=== PATIENT | female | born 1970 ===

== ENCOUNTER 2017-11-21 13:34 | Emergency (ER) | payer OTHER ==
[~2017-11-21] VITALS: Ht 165.1 cm; Wt 70.5 kg
[~2017-11-21 13:34] MED LIST: ADVIN25050 INH; ALBUAER2 INH; ALPR1TAB3 PO; ASCO250T14; CITA10TA8 PO; CODCAP4; DLC5 PO; FRRS300 PO; LANS30CA12 PO; MULT-506 PO; SENN-65 PO
[2017-11-21 13:46] VITALS: TEMP 36.8
--- NOTE | 2017-11-21 14:03 | EMERGENCY ROOM VISIT NOTE ---
History Report prepared by Genie: Cheryl Rocha Under the Supervision of: Dr. Rogelio Fraser D.O. First contact with patient: 13:50 Chief Complaint: SHORTNESS OF BREATH Stated Complaint: DIZZY, BODY PAIN, SOB History of Present Illness The patient is a 47 year old female who presents to the Emergency Room with complaints of generalized weakness and pain. The patient states for approximately 1 month she has been noticing generalized weakness. She states that she has no focal neurologic deficits or unilateral weakness but states her whole body feels weak. She also complains of joint pain but no joint swelling. She denies having any fever. She complains of headache as well and states that this is been intermittent for approximately the last month. She states that she has not seen her family doctor for the symptoms but has had similar symptoms in the past. She has a history of chronic anemia as well as chronic pain. She takes medical marijuana for her chronic pain. She is required blood transfusion in the past because of anemia. She denies having any leg swelling but does complain of some chest pain. She states the chest pain is very intermittent and not associated with exertion. She denies having any new medications. The patient states that she noticed increasing of her symptoms over the last few days. For this reason she presented to the emergency department today. Source of History: patient Onset: 1 month Position: other (generalized) Quality: other (weakness) Timing: other (persistent) Associated Symptoms: + headache, + chest pain, No fevers Note: Pt reports joint pain. Review of Systems See HPI for pertinent positives & negatives. A total of 10 systems reviewed and were otherwise negative. Past Medical & Surgical Medical Problems: (1) Iron deficiency anemia (2) MAC (mycobacterium avium-intracellulare complex) Surgical Problems: (1) H/O gastric bypass (2) H/O: hysterectomy Family History Cancer Diabetes mellitus Social History Smoking Status: Never Smoker Alcohol Use: none Marital Status: Current/Historical Medications Scheduled Albuterol Hfa (Ventolin Hfa), 2-4 PUFFS INH Q6H Budesonide/Formoterol Fumarate (Symbicort 160-4.5 Mcg/Act), 2 PUFFS INH QAM Fluticasone Prop/Salmeterol (Advair Diskus 250/50 60 Dose), 1 PUFF INH BID Marijuana, Home Medication (Marijuana, Home Medication), 1 PUFF INH HS Montelukast Sodium (Singulair), 10 MG PO DAILY Omeprazole (Prilosec), 40 MG PO DAILY Paroxetine Hcl (Paxil), 20 MG PO DAILY Quetiapine Fumarate (Seroquel), 200 MG PO DAILY Valacyclovir Hcl (Valtrex), 500 MG PO UD Scheduled PRN Naproxen Sodium (Aleve), 220 MG PO UD PRN for Pain Allergies Coded Allergies: NO KNOWN DRUG ALLERGIES (Unverified Allergy, Unknown, no drug, 11/21/17) Shellfish (Verified Allergy, Unknown, UNKNOWN, 11/21/17) [place] (Verified Allergy, Unknown, UNKNOWN, 11/21/17) Physical Exam Vital Signs Date Time Temp Pulse Resp B/P (MAP) Pulse Ox O2 Delivery O2 Flow Rate FiO2 11/21/17 15:20 71 17 101/68 97 11/21/17 14:11 95 Room Air 11/21/17 14:11 95 Room Air 11/21/17 13:46 36.8 107 20 128/77 95 Room Air Physical Exam GENERAL: Patient is awake alert in no acute distress patient is resting comfortably and showing no signs of anxiety EYES: The conjunctivae are clear. The pupils are round and reactive. EARS, NOSE, MOUTH AND THROAT: The nose is without any evidence of any deformity. Mucous membranes are moist tongue is midline NECK: The neck is nontender and supple. RESPIRATORY: Normal respiratory effort is noted there is no evidence of wheezing rhonchi or rales CARDIOVASCULAR: Regular rate and rhythm noted there no murmurs rubs or gallops normal S1 normal S2 GASTROINTESTINAL: The abdomen is soft. Bowel sounds are present in all quadrants. Abdomen is nontender MUSCULOSKELETAL/EXTREMITIES: There is no evidence of gross deformity full range of motion is noted in the hips and shoulders SKIN: There is no obvious evidence of any rash. There are no petechiae, pallor or cyanosis noted. NEUROLOGIC: Patient is awake alert and oriented x3 strength is symmetric patellar reflexes are 2+ bilaterally Medical Decision & Procedures ER Provider Diagnostic Interpretation: X-ray results as stated below per interpretation by me and the radiologist. CHEST ONE VIEW PORTABLE HISTORY: EVALUATE ALTERED MENTAL STATUS/WEAKNESS COMPARISON: Chest 05/19/2014. FINDINGS: Stable small nodular densities within the right upper lobe. No new focal lung consolidations. The heart is normal in size. No pleural effusions. No pneumothorax. Small left-sided fat-containing Bochdalek hernia remains stable. IMPRESSION: No significant change compared to the prior study. No acute process. Follow-up nonemergent chest CT is recommended to confirm stability of the right upper lobe nodular densities. Electronically signed by: Greg Rivera M.D. 11/21/2017 2:29 PM Dictated Date/Time: 11/21/2017 2:26 PM Laboratory Results 11/21/17 14:20 Red Blood Count 4.23, Mean Corpuscular Volume 82.0, Mean Corpuscular Hemoglobin 26.7, Mean Corpuscular Hemoglobin Concent 32.6, Mean Platelet Volume 9.9, Neutrophils (%) (Auto) 69.2, Lymphocytes (%) (Auto) 20.8, Monocytes (%) (Auto) 6.4, Eosinophils (%) (Auto) 3.2, Basophils (%) (Auto) 0.3, Neutrophils # (Auto) 4.78, Lymphocytes # (Auto) 1.44, Monocytes # (Auto) 0.44, Eosinophils # (Auto) 0.22, Basophils # (Auto) 0.02 11/21/17 14:20 Test 11/21/17 00:00 11/21/17 14:20 Urine Color YELLOW Urine Appearance CLEAR (CLEAR) Urine pH 6.5 (4.5-7.5) Urine Specific [place] 1.012 (1.000-1.030) Urine Protein NEG (NEG) Urine Glucose (UA) NEG (NEG) Urine Ketones NEG (NEG) Urine Occult Blood NEG (NEG) Urine Nitrite NEG (NEG) Urine Bilirubin NEG (NEG) Urine Urobilinogen NEG (NEG) Urine Leukocyte Esterase NEG (NEG) White Blood Count 6.91 K/uL (4.8-10.8) Red Blood Count 4.23 M/uL (4.2-5.4) Hemoglobin 11.3 g/dL (12.0-16.0) Hematocrit 34.7 % (37-47) Mean Corpuscular Volume 82.0 fL (80-100) Mean Corpuscular Hemoglobin 26.7 pg (25-34) Mean Corpuscular Hemoglobin Concent 32.6 g/dl (32-36) Platelet Count 322 K/uL (130-400) Mean Platelet Volume 9.9 fL (7.4-10.4) Neutrophils (%) (Auto) 69.2 % Lymphocytes (%) (Auto) 20.8 % Monocytes (%) (Auto) 6.4 % Eosinophils (%) (Auto) 3.2 % Basophils (%) (Auto) 0.3 % Neutrophils # (Auto) 4.78 K/uL (1.4-6.5) Lymphocytes # (Auto) 1.44 K/uL (1.2-3.4) Monocytes # (Auto) 0.44 K/uL (0.11-0.59) Eosinophils # (Auto) 0.22 K/uL (0-0.5) Basophils # (Auto) 0.02 K/uL (0-0.2) RDW Standard Deviation 51.5 fL (36.4-46.3) RDW Coefficient of Variation 17.1 % (11.5-14.5) Immature Granulocyte % (Auto) 0.1 % Immature Granulocyte # (Auto) 0.01 K/uL (0.00-0.02) Prothrombin Time 9.5 SECONDS (9.0-12.0) Prothromb Time International Ratio 0.9 (0.9-1.1) Activated Partial Thromboplast Time 24.3 SECONDS (21.0-31.0) Partial Thromboplastin Ratio 0.9 Anion Gap 6.0 mmol/L (3-11) Est Creatinine Clear Calc Drug Dose 104.7 ml/min Estimated GFR () 121.4 Estimated GFR (Non- 104.8 BUN/Creatinine Ratio 23.5 (10-20) Calcium Level 8.5 mg/dl (8.5-10.1) Magnesium Level 2.0 mg/dl (1.8-2.4) Total Bilirubin 0.6 mg/dl (0.2-1) Direct Bilirubin 0.1 mg/dl (0-0.2) Aspartate Amino Transf (AST/SGOT) 29 U/L (15-37) Alanine Aminotransferase (ALT/SGPT) 28 U/L (12-78) Alkaline Phosphatase 174 U/L (45-117) Troponin I < 0.015 ng/ml (0-0.045) Total Protein 7.4 gm/dl (6.4-8.2) Albumin 3.6 gm/dl (3.4-5.0) Thyroid Stimulating Hormone (TSH) 1.110 uIu/ml (0.300-4.500) Laboratory results per my review. ECG Per My Interpretation Indication: SOB/dyspnea Rate (beats per minute): 72 Rhythm: normal sinus Findings: no ectopy, other (no acute ST segments) Comparison ECG Date: 27-Jul-2010 Change: no significant change ED Course 1353: The patient was evaluated in room A11B. A complete history and physical examination were performed. 1511: Upon reevaluation, the patient is resting comfortably. I discussed the results and treatment plan with her. She verbalized agreement of the treatment plan. She was discharged home. Medical Decision Prior records/ancillary studies reviewed and summarized above. Nursing notes reviewed. Differential diagnosis: Etiologies such as metabolic, infection, hypo/hyperglycemia, electrolyte abnormalities, cardiac sources, intracerebral event, toxicologic, neurologic, as well as others were entertained. The patient is a 47-year-old female who presented to the emergency department with multiple complaints. The patient was complaining of muscle aches joint pain generalized weakness and headache. The patient had no focal neurologic deficits. She had a history of anemia and states that she had similar symptoms in the past with anemia. She is also required transfusion because of her anemia. The patient did not have any fever. Her white blood cell count was normal. Her hemoglobin was in the anemia range however it was better than it had been previously. I discussed the patient's laboratory and radiographic studies with her. She was encouraged to rest and avoid any strenuous activity. She was also encouraged to continue all medications as prescribed and call her family doctor to schedule a follow-up appointment. Otherwise she was encouraged to return to the emergency department immediately if symptoms change worsen or the need arises. Medication Reconcilliation Current Medication List: was personally reviewed by me Blood Pressure Screening Patient's blood pressure: Elevated blood pressure Blood pressure disposition: Elevated BP felt to be situational Impression Primary Impression: Weakness Additional Impression: Anemia Scribe Attestation The scribe's documentation has been prepared under my direction and personally reviewed by me in its entirety. I confirm that the note above accurately reflects all work, treatment, procedures, and medical decision making performed by me. Departure Information Dispostion Home / Self-Care Referrals Flash Aquino M.D. (PCP) Forms HOME CARE DOCUMENTATION FORM, IMPORTANT VISIT INFORMATION Patient Instructions ED Weakness [facility], My [facility] Additional Instructions Continue all medications as prescribed. Rest and avoid any strenuous activity. Call your family doctor to schedule a follow-up appointment. Problem Qualifiers Additional Impression: Anemia Anemia type: unspecified type Qualified Codes: D64.9 - Anemia, unspecified
[2017-11-21 14:11] VITALS: O2SAT 95; Ht 165.1 cm; Wt 70.5 kg
[2017-11-21 14:26] LABS: BASO % 0.3 %; BASO ABS # 0.02 K/uL (0-0.2); EOS % 3.2 %; EOS ABS # 0.22 K/uL (0-0.5); HEMATOCRIT 34.7 % (37-47); HEMOGLOBIN 11.3 g/dL (12.0-16.0); IG# 0.01 K/uL (0.00-0.02); LYMPH % 20.8 %; LYMPH ABS # 1.44 K/uL (1.2-3.4); MEAN CORPUSCULAR HEMOGLOBIN 26.7 pg (25-34); MEAN CORPUSCULAR HGB CONC 32.6 g/dl (32-36); MEAN PLATELET VOLUME 9.9 fL (7.4-10.4); MONO % 6.4 %; MONO ABS # 0.44 K/uL (0.11-0.59); NEUT % 69.2 %; NEUT ABS # 4.78 K/uL (1.4-6.5); PLATELET COUNT 322 K/uL (130-400); RED CELL DISTRIBUTION WIDTH CV 17.1 % (11.5-14.5); RED CELL DISTRIBUTION WIDTH SD 51.5 fL (36.4-46.3); WHITE BLOOD COUNT 6.91 K/uL (4.8-10.8)
--- NOTE | 2017-11-21 14:30 | DIAGNOSTIC IMAGING REPORT ---
CHEST ONE VIEW PORTABLE HISTORY: EVALUATE ALTERED MENTAL STATUS/WEAKNESS COMPARISON: Chest 05/19/2014. FINDINGS: Stable small nodular densities within the right upper lobe. No new focal lung consolidations. The heart is normal in size. No pleural effusions. No pneumothorax. Small left-sided fat-containing Bochdalek hernia remains stable. IMPRESSION: No significant change compared to the prior study. No acute process. Follow-up nonemergent chest CT is recommended to confirm stability of the right upper lobe nodular densities. Electronically signed by: Greg Rivera M.D. 11/21/2017 2:29 PM Dictated Date/Time: 11/21/2017 2:26 PM
[2017-11-21] MEDS ORDERED: SYMIN INH (14:31)
[2017-11-21] MEDS ORDERED: MEDMARIJ INH (14:31)
[2017-11-21] MEDS ORDERED: VNTHFA/IN INH (14:31)
[2017-11-21] MEDS ORDERED: VALA500T39 PO (14:31)
[2017-11-21] MEDS ORDERED: ADVIN25/60 INH (14:31)
[2017-11-21] MEDS ORDERED: SRQ/200 PO (14:31)
[2017-11-21] MEDS ORDERED: OMEP40CA41 PO (14:31)
[2017-11-21] MEDS ORDERED: PARO20TA PO (14:31)
[2017-11-21] MEDS ORDERED: MONT1TAB3 PO (14:31)
[2017-11-21] MEDS ORDERED: NAPR-1264 PO (14:32)
[2017-11-21 14:56] LABS: INR 0.9 (0.9-1.1); PTT PATIENT 24.3 SECONDS (21.0-31.0)
[2017-11-21 15:02] LABS: ALBUMIN 3.6 gm/dl (3.4-5.0); ALKALINE PHOSPHATASE 174 U/L (45-117); ALT/SGPT 28 U/L (12-78); AST/SGOT 29 U/L (15-37); BLOOD UREA NITROGEN 15 mg/dl (7-18); CALCIUM 8.5 mg/dl (8.5-10.1); CARBON DIOXIDE 25 mmol/L (21-32); CREATININE 0.64 mg/dl (0.60-1.20); GLUCOSE 101 mg/dl (70-99); POTASSIUM 3.6 mmol/L (3.5-5.1); SODIUM 139 mmol/L (136-145); TOTAL PROTEIN 7.4 gm/dl (6.4-8.2)
[2017-11-21 15:20] VITALS: BP 101/68; PULSE 71; O2SAT 97
== END 2017-11-21 15:20 | disposition home or self-care (01) ==
LOC: C.EDB 13:35 → C.EDA 15:20
DX: R53.1 Weakness (principal); D64.9 Anemia, unspecified; Z79.899 Other long term (current) drug therapy; F12.90 Cannabis use, unspecified, uncomplicated; Z91.018 Allergy to other foods

== ENCOUNTER 2018-02-18 11:27 | Emergency (ER) | payer OTHER ==
[~2018-02-18] VITALS: Ht 165.1 cm; Wt 72.4 kg
[~2018-02-18 11:27] MED LIST changes: +ADVIN25/60 INH; -ADVIN25050 INH; -ALBUAER2 INH; -ALPR1TAB3 PO; -ASCO250T14; -CITA10TA8 PO; -CODCAP4; -DLC5 PO; -FRRS300 PO; -LANS30CA12 PO; +MEDMARIJ INH; +MONT1TAB3 PO; -MULT-506 PO; +NAPR-1264 PO; +OMEP40CA41 PO; +PARO20TA PO; -SENN-65 PO; +SRQ/200 PO; +SYMIN INH; +VALA500T41 PO; +VNTHFA/IN INH
[2018-02-18 11:33] VITALS: TEMP 37.4
[2018-02-18] MEDS ORDERED: ALBUT/IPRATROP 3MG/0.5MG NEB 3 ML VIAL INH STA (12:21)
[2018-02-18] MEDS ORDERED: ACETAMINOPHEN 500 MG TAB PO STA (12:21)
[2018-02-18] MEDS ORDERED: KETOROLAC TROMETHAMINE 30 MG/ML VIAL IV STA (12:21)
[2018-02-18 12:29] VITALS: Ht 165.1 cm; Wt 72.4 kg
[2018-02-18] MEDS ORDERED: NAPR-1007 PO (12:37)
[2018-02-18] MEDS ORDERED: CLOT-32 PV (12:37)
[2018-02-18] MEDS ORDERED: LEVO5TAB7 PO (12:37)
[2018-02-18] MEDS ORDERED: ERGO2000 PO (12:37)
[2018-02-18] MEDS ORDERED: VNTHFA/IN INH (12:37)
[2018-02-18] MEDS ORDERED: MULT-506 PO (12:37)
[2018-02-18] MEDS ORDERED: PRLSR20 PO (12:37)
[2018-02-18] MEDS ORDERED: CLOB1OIN2 TOP (12:37)
[2018-02-18] MEDS ORDERED: CYCL10TA6 PO (12:37)
[2018-02-18] MEDS ORDERED: IPRA-64 INH (12:37)
[2018-02-18 12:38] LABS: BASO % 0.3 %; BASO ABS # 0.03 K/uL (0-0.2); EOS % 5.6 %; EOS ABS # 0.51 K/uL (0-0.5); HEMATOCRIT 31.2 % (37-47); HEMOGLOBIN 9.9 g/dL (12.0-16.0); IG# 0.01 K/uL (0.00-0.02); LYMPH % 9.9 %; MEAN CELL VOLUME 83.6 fL (80-100); MEAN CORPUSCULAR HEMOGLOBIN 26.5 pg (25-34); MEAN CORPUSCULAR HGB CONC 31.7 g/dl (32-36); MEAN PLATELET VOLUME 9.9 fL (7.4-10.4); MONO % 7.2 %; MONO ABS # 0.66 K/uL (0.11-0.59); NEUT % 76.9 %; PLATELET COUNT 282 K/uL (130-400); RED CELL DISTRIBUTION WIDTH CV 16.7 % (11.5-14.5); RED CELL DISTRIBUTION WIDTH SD 50.9 fL (36.4-46.3); WHITE BLOOD COUNT 9.11 K/uL (4.8-10.8)
[2018-02-18 12:47] VITALS: O2SAT 96
[2018-02-18 12:49] LABS: ALBUMIN 3.4 gm/dl (3.4-5.0); CALCIUM 8.3 mg/dl (8.5-10.1); CREATININE 0.62 mg/dl (0.60-1.20); POTASSIUM 3.3 mmol/L (3.5-5.1); TOTAL PROTEIN 6.9 gm/dl (6.4-8.2)
--- NOTE | 2018-02-18 12:50 | EMERGENCY ROOM VISIT NOTE ---
ED Visit Note First contact with patient: 11:58 CHIEF COMPLAINT: Cough, congestion, chest tightness, asthma HISTORY OF PRESENTING ILLNESS: This is a 47-year-old female with past medical history significant for asthma, iron deficiency anemia, anxiety and depression, who presents to the emergency department by private vehicle with complaint of cough, congestion, and chest tightness for the past 3 days. The patient states that she was working outside in the rain prior to her symptoms starting, she began with URI type symptoms of cough, congestion, and sore throat. She states that she feels that this has flared up her asthma. She states that she has been using her rescue inhaler with some improvement, but today she felt worse, and was having tightness in her chest and feeling like her asthma and cough for worse, which prompted her to come to the emergency department. She also complains of generalized body aches, and feels that she is dehydrated. She does note that she ran out of her Symbicort inhaler a few weeks ago and has not been able to get this refilled. She denies any recent courses of steroids. She denies any fevers, but states she has been having chills and sweats. She denies any headaches, neck pain or stiffness, back pain, abdominal pain, nausea or vomiting, diarrhea, urinary symptoms, or unusual rash. REVIEW OF SYSTEMS: A complete 10 point review of systems was reviewed with the patient with pertinent positives and negatives as per history of present illness. All else were negative. PAST MEDICAL HISTORY: Reviewed in chart, see problem list below. SOCIAL HISTORY: Lives at home. She is a former smoker. She does admit to smoking marijuana occasionally. ALLERGIES: Reviewed in chart, see below. PHYSICAL EXAM: CONSTITUTIONAL: Pleasant and cooperative. No acute distress. Mildly dehydrated , but otherwise well appearing and well nourished. HEENT: Normocephalic, atraumatic. Pupils equal, round and reactive to light, EOMI. TMs normal. Pharynx normal. Tacky mucous membranes. NECK: Supple, full active range of motion without discomfort. No cervical adenopathy. RESPIRATORY: Diminished in bases bilaterally with scant expiratory wheezes heard on auscultation, no crackles, rhonchi or stridor. Equal expansion bilaterally. CARDIOVASCULAR: Regular rate and rhythm with no murmurs, rubs or gallops. Normal peripheral perfusion. No edema. GASTROINTESTINAL: Soft, nontender, nondistended. No palpable masses or HSM. Bowel sounds present in all quadrants. MUSCULOSKELETAL: Full range of motion of all joints without discomfort. INTEGUMENTARY: No rash or other significant dermatologic conditions noted. NEUROLOGIC: Alert and oriented X 4 with normal affect. Normal strength and sensation in all 4 extremities. No focal neurologic deficits noted. Normal speech. Normal gait observed. ED COURSE AND MEDICAL DECISION MAKING: CC: Patient presenting with complaint of cough, congestion, chest tightness, asthma DIFFERENTIAL DIAGNOSIS: Includes, but not limited to asthma exacerbation, URI, bronchitis, pneumonia, PE, among others. INTERPRETATION OF LABS: No leukocytosis, anemia which appears consistent with baseline, normal platelets, no significant electrolyte abnormalities, normal renal function, normal liver enzymes. IMAGING: CHEST 2 VIEWS ROUTINE CLINICAL HISTORY: EVALUATE RESPIRATORY DISTRESS.DYSPNEA COMPARISON STUDY: Chest radiograph November 21, 2017. FINDINGS: Upper abdominal surgical clips are noted. There is no pneumothorax or pleural effusion. There is no evidence for pulmonary edema. Cardiac size is normal. Mediastinal contours are normal. A small nodular density within the right midlung is unchanged. This favors scarring. A 1.5 cm right upper lung nodular density is indeterminate. IMPRESSION: 1. No acute cardiopulmonary findings. 2. 1.5 cm nodular right upper lung density which may reflect scarring or a pulmonary nodule. A nonemergent chest CT is recommended for further evaluation. 3. Nodular right midlung density which favors scarring. EKG: Shows normal sinus rhythm with a rate of 69 bpm, no acute ST or T-wave changes, no ectopy, no significant change when compared to previous EKG from by my interpretation. MEDICATION RECONCILIATION: I attest that I have personally reviewed the patient 's current medication list. INITIAL VITAL SIGNS REVIEW: I reviewed the patient's initial vital signs and interpret them as follows: T: Afebrile; BP: Hypertensive; HR: Mildly tachycardic; RR: Within normal limits; Pulse Ox: Within normal limits on room air. Blood pressure screening: The patient was found to have an elevated blood pressure, which was felt to be situational. SUMMARY: Patient was evaluated at bedside, history and physical exam performed. Patient is alert and oriented, in no acute distress, resting calmly in stretcher. No evidence of respiratory distress, she is not tachypneic or labored, airway patent. Lungs are diminished with scant expiratory wheezes heard on auscultation. She is PERC negative, I have a low suspicion for PE at this time. Her symptoms seem most consistent with a viral type URI and asthma exacerbation. Orders were placed at bedside for labs, UA, IV fluids for hydration, IV Toradol and p.o. Tylenol for body aches and throat pain, DuoNeb, chest x-ray to evaluate for cardiopulmonary disease. Patient discussed with Dr. Lynch, who agrees with my assessment and plan. Labs and imaging reviewed as above, no evidence for pneumonia on chest x-ray. Patient was encouraged to follow-up with her PCP regarding lung nodules. Patient reassessed multiple times throughout ED stay, she has remained stable, reports that her symptoms feel much improved after the DuoNeb and medications. Patient was updated on all results and plan for discharge, she was encouraged to follow closely with her PCP. Patient was also given strict return precautions should her symptoms worsen, she verbalized understanding. Patient was discharged home in stable condition and ambulatory. Problem List Medical Problems: (1) Iron deficiency anemia Status: Chronic (2) MAC (mycobacterium avium-intracellulare complex) Status: Chronic Surgical Problems: (1) H/O gastric bypass Status: Resolved (2) H/O: hysterectomy Status: Resolved Current/Historical Medications Scheduled Budesonide/Formoterol Fumarate (Symbicort 160-4.5 Mcg/Act), 2 PUFFS INH BID Clobetasol Propionate (Temovate), 1 APPLN TOP BID Clotrimazole Vaginal (Ra Clotrimazole 7), 1 APPL PV HS Ergocalciferol (Vitamin D), 2,000 UNITS PO DAILY Fluticasone Prop/Salmeterol (Advair Diskus 250/50 60 Dose), 1 PUFF INH BID Levocetirizine Dihydrochloride (Xyzal Allergy 24Hr), 5 MG PO QPM Marijuana, Home Medication (Marijuana, Home Medication), 1 PUFF INH HS Montelukast Sodium (Singulair), 10 MG PO HS Multivitamin (Multivitamin), 1 TAB PO DAILY Omeprazole (Prilosec), 20 MG PO HS Paroxetine Hcl (Paxil), 20 MG PO DAILY Quetiapine Fumarate (Seroquel), 200 MG PO HS Valacyclovir Hcl (Valtrex), 500 MG PO UD Scheduled PRN Albuterol Hfa (Ventolin Hfa), 2 PUFFS INH Q4 PRN for COUGH/WHEEZING Cyclobenzaprine Hcl (Flexeril), 10 MG PO HS PRN for Muscle Spasms Ipratropium-Albuterol (Duoneb), 1 TREATMENT INH Q6 PRN for SOB/Wheezing Naproxen Sodium (Naproxen Sodium), 500 MG PO BIDM PRN for Pain Allergies Coded Allergies: Shellfish (Verified Allergy, Unknown, UNKNOWN, 02/18/18) [place] (Verified Allergy, Unknown, UNKNOWN, 02/18/18) Vital Signs Date Time Temp Pulse Resp B/P (MAP) Pulse Ox O2 Delivery O2 Flow Rate FiO2 02/18/18 16:13 61 16 115/74 97 02/18/18 14:21 72 120/79 97 Room Air 02/18/18 13:30 71 20 115/72 97 Room Air 02/18/18 12:57 73 02/18/18 12:47 96 Room Air 02/18/18 12:36 96 Room Air 02/18/18 11:33 37.4 92 17 146/77 96 Room Air Laboratory Results 02/18/18 12:10 Red Blood Count 3.73, Mean Corpuscular Volume 83.6, Mean Corpuscular Hemoglobin 26.5, Mean Corpuscular Hemoglobin Concent 31.7, Mean Platelet Volume 9.9, Neutrophils (%) (Auto) 76.9, Lymphocytes (%) (Auto) 9.9, Monocytes (%) (Auto) 7.2, Eosinophils (%) (Auto) 5.6, Basophils (%) (Auto) 0.3, Neutrophils # (Auto) 7.00, Lymphocytes # (Auto) 0.90, Monocytes # (Auto) 0.66, Eosinophils # (Auto) 0.51, Basophils # (Auto) 0.03 02/18/18 12:10 Test 02/18/18 12:10 White Blood Count 9.11 K/uL (4.8-10.8) Red Blood Count 3.73 M/uL (4.2-5.4) Hemoglobin 9.9 g/dL (12.0-16.0) Hematocrit 31.2 % (37-47) Mean Corpuscular Volume 83.6 fL (80-100) Mean Corpuscular Hemoglobin 26.5 pg (25-34) Mean Corpuscular Hemoglobin Concent 31.7 g/dl (32-36) Platelet Count 282 K/uL (130-400) Mean Platelet Volume 9.9 fL (7.4-10.4) Neutrophils (%) (Auto) 76.9 % Lymphocytes (%) (Auto) 9.9 % Monocytes (%) (Auto) 7.2 % Eosinophils (%) (Auto) 5.6 % Basophils (%) (Auto) 0.3 % Neutrophils # (Auto) 7.00 K/uL (1.4-6.5) Lymphocytes # (Auto) 0.90 K/uL (1.2-3.4) Monocytes # (Auto) 0.66 K/uL (0.11-0.59) Eosinophils # (Auto) 0.51 K/uL (0-0.5) Basophils # (Auto) 0.03 K/uL (0-0.2) RDW Standard Deviation 50.9 fL (36.4-46.3) RDW Coefficient of Variation 16.7 % (11.5-14.5) Immature Granulocyte % (Auto) 0.1 % Immature Granulocyte # (Auto) 0.01 K/uL (0.00-0.02) Anion Gap 8.0 mmol/L (3-11) Est Creatinine Clear Calc Drug Dose 109.4 ml/min Estimated GFR () 122.7 Estimated GFR (Non- 105.9 BUN/Creatinine Ratio 21.6 (10-20) Calcium Level 8.3 mg/dl (8.5-10.1) Total Bilirubin 0.4 mg/dl (0.2-1) Aspartate Amino Transf (AST/SGOT) 23 U/L (15-37) Alanine Aminotransferase (ALT/SGPT) 23 U/L (12-78) Alkaline Phosphatase 142 U/L (45-117) Total Protein 6.9 gm/dl (6.4-8.2) Albumin 3.4 gm/dl (3.4-5.0) Globulin 3.5 gm/dl (2.5-4.0) Albumin/Globulin Ratio 1.0 (0.9-2) Medications Administered Medications (Trade) Dose Ordered Sig/Emily Route Start Time Stop Time Status Last Admin Dose Admin Acetaminophen (Tylenol Tab) 1,000 mg NOW STAT PO 02/18/18 12:21 02/18/18 12:24 DC 02/18/18 12:44 1,000 MG Albuterol/ Ipratropium (Duoneb) 3 ml NOW STAT INH 02/18/18 12:21 02/18/18 12:24 DC 02/18/18 12:43 3 ML Ketorolac Tromethamine (Toradol Inj) 15 mg NOW STAT IV 02/18/18 12:21 02/18/18 12:24 DC 02/18/18 12:44 15 MG Departure Information Impression Primary Impression: Acute bronchitis with asthma Dispostion Home / Self-Care Condition GOOD Referrals Flash Aquino M.D. (PCP) Patient Instructions ED Bronchitis Asthmatic, My [facility] Additional Instructions You have been evaluated in the emergency department for your cough and asthma. There is no evidence of pneumonia on your chest x-ray. You most likely have bronchitis and a flare of your asthma. Use the albuterol inhaler with the spacer tube TWO puffs every 4 hours as needed for cough, wheezing, chest tightness. You should also use this before bed to help prevent coughing so that you can sleep better at night. For chest pain, body aches or fevers, you can use the following over-the- counter medicines (if >12 yo): - Regular strength (325mg/tab) Tylenol (acetaminophen) 2 tabs every 4-6 hours as needed. Do not exceed 10 tablets in a 24 hour period. Avoid taking more than 3000 mg of Tylenol per day. This includes any other sources of acetaminophen you may take on a regular basis. - Regular strength (200 mg/tab) Advil (ibuprofen) 3 tabs every 6-8 hours as needed. Do not exceed a dose of 2400 mg per day. - For best results, alternate dosing of Tylenol and Advil every 3-4 hours. Drink plenty of fluids to stay well hydrated. 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 Please follow-up with your PCP or at an urgent care in the next few days to be rechecked if your symptoms are not getting any better. You should also have a chest CT scan in 3-6 months to evaluate your lung nodule. Please return to the emergency department if your symptoms are not improving or if you develop the following symptoms of: inability to swallow solids, liquids, or drool; excessive wheezing or inability to catch your breath; worsening chest pain, coughing up blood, severe dizziness or passing out; fever or pain that becomes unmanageable with [id number] medications; or any other concerns. Work Instructions Return To Work: 1 day
--- NOTE | 2018-02-18 13:39 | DIAGNOSTIC IMAGING REPORT ---
CHEST 2 VIEWS ROUTINE CLINICAL HISTORY: EVALUATE RESPIRATORY DISTRESS.DYSPNEA COMPARISON STUDY: Chest radiograph November 21, 2017. FINDINGS: Upper abdominal surgical clips are noted. There is no pneumothorax or pleural effusion. There is no evidence for pulmonary edema. Cardiac size is normal. Mediastinal contours are normal. A small nodular density within the right midlung is unchanged. This favors scarring. A 1.5 cm right upper lung nodular density is indeterminate. IMPRESSION: 1. No acute cardiopulmonary findings. 2. 1.5 cm nodular right upper lung density which may reflect scarring or a pulmonary nodule. A nonemergent chest CT is recommended for further evaluation. 3. Nodular right midlung density which favors scarring. Electronically signed by: Raf Montilla M.D. 02/18/2018 1:38 PM Dictated Date/Time: 02/18/2018 1:34 PM
--- NOTE | 2018-02-18 13:46 | EMERGENCY ROOM VISIT NOTE ---
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 I was involved in the patient's care and did evaluate the patient myself. I was involved in the care throughout the ER stay. Patient presents with some respiratory issues and congestion. Laboratory work and imaging is relatively unremarkable. She likely has a bronchitis with an asthma flare. She is stable for discharge home.
[2018-02-18 16:13] VITALS: BP 115/74; PULSE 61; O2SAT 97
== END 2018-02-18 16:13 | disposition home or self-care (01) ==
LOC: C.EDB 11:31 → C.EDC 16:13
DX: J45.901 Unspecified asthma with (acute) exacerbation (principal); Z87.891 Personal history of nicotine dependence; D50.9 Iron deficiency anemia, unspecified; A31.2 Disseminated mycobacterium avium-intracellulare complex (DMAC); Z91.012 Allergy to eggs; Z91.018 Allergy to other foods